=== PATIENT | female | born 1980 | race Caucasian/White ===

== ENCOUNTER 2024-01-04 11:32 | Day surgery (SDC) | payer OTHER ==
[~2024-01-04] VITALS: Ht 175.3 cm; Wt 76.7 kg
[~2024-01-04 11:32] MED LIST: Lactated Ringer's 1,000 ML IV ONE; propofoL 50 ML IV ONE
[2024-01-04] MEDS ORDERED: LORA10ER (11:56)
[2024-01-04] MEDS ORDERED: TERB250 (11:56)
[2024-01-04] MEDS ORDERED: ALEVAZOL56.7 G1 (11:57)
[2024-01-04] MEDS ORDERED: MULTI-VITAMIN1 EAC2 (11:57)
[2024-01-04] MEDS ORDERED: Acerola C500 MG (11:58)
[2024-01-04] MEDS ORDERED: CALCIUM CITRAT250 MG (11:58)
[2024-01-04] MEDS ORDERED: K2-D3 MAX 180-1 EACH (11:58)
[2024-01-04] MEDS ORDERED: FISH OIL 1,0001 EA10 (11:58)
[2024-01-04] MEDS ORDERED: VITAMIN D310 MC5 (11:59)
[2024-01-04] MEDS ORDERED: ZINC15 (11:59)
[2024-01-04] MEDS ORDERED: PROG100 (12:01)
[2024-01-04] MEDS ORDERED: DELESTROGEN (12:01)
[2024-01-04] MEDS ORDERED: Lactated Ringer's 1,000 ML IV ONE (12:23)
--- NOTE | 2024-01-04 12:27 | NUR ---
01/04/24 1227 Lynn Lott DENIES ANY PAIN.
[2024-01-04 14:09] VITALS: BP 109/71
== END 2024-01-04 13:50 | disposition home or self-care (01) ==
LOC: ORSCSDS 11:32
PROVIDERS: Internal Medicine Gastroenterology
PROC: 0DBK8ZX Excision of Ascending Colon, Via Natural or Artificial Opening Endoscopic, Diagnostic (ICD-10-PCS; principal; 2024-01-04 12:45)
DX: K62.5 Hemorrhage of anus and rectum (principal); R19.4 Change in bowel habit; D12.2 Benign neoplasm of ascending colon; K64.8 Other hemorrhoids
CPT/HCPCS: 88305; J2704; J7120

== ENCOUNTER 2024-06-29 12:48 | Emergency (ER) | payer OTHER ==
[~2024-06-29] VITALS: Ht 175.3 cm; Wt 77.1 kg
[~2024-06-29 12:48] MED LIST changes: +ALEVAZOL56.7 G1; +Acerola C500 MG; +CALCIUM CITRAT250 MG; +DELESTROGEN; +FISH OIL 1,0001 EA10; +K2-D3 MAX 180-1 EACH; +LORA10ER; -Lactated Ringer's 1,000 ML IV ONE; +MULTI-VITAMIN1 EAC2; +PROG100; +TERB250; +VITAMIN D310 MC5; +ZINC15; -propofoL 50 ML IV ONE
[2024-06-29 13:20] VITALS: BP 116/80
[2024-06-29] MEDS ORDERED: Ketorolac Tromethamine 15mg Vial IM ONE (15:10)
== END 2024-06-29 16:17 | disposition home or self-care (01) ==
LOC: ER 12:48
DX: M79.672 Pain in left foot (principal); Z59.89 Other problems related to housing and economic circumstances; Z79.899 Other long term (current) drug therapy; Z79.890 Hormone replacement therapy; Z79.51 Long term (current) use of inhaled steroids; Z79.52 Long term (current) use of systemic steroids; Z79.83 Long term (current) use of bisphosphonates; Z79.02 Long term (current) use of antithrombotics/antiplatelets; W18.30XA Fall on same level, unspecified, initial encounter
CPT/HCPCS: 73630; 96372; 99283-25; J1885

== ENCOUNTER → 2024-10-13 | Outpatient (CLI) | payer OTHER ==
[2024-10-17 15:54] LABS: HEPATITIS C AB CIA INTERP Negative (Negative); HEPATITIS C ANTIBODY CIA INDEX 0.03 IV
[2024-10-17 16:05] LABS: HIV 1,2 COMBO ANTIGEN/ANTIBODY Negative (Negative)
== END ==
LOC: LAB SHORT 17:21 → LAB 17:21
DX: Z11.59 Encounter for screening for other viral diseases (principal)
CPT/HCPCS: 86592; 86803; 87389

== ENCOUNTER → 2024-10-31 | Outpatient (CLI) | payer OTHER ==
[2024-10-31 14:26] LABS: Chlamydia Trachomatis Rectal NOT DETECTED (NOT DETECT); Neisseria Gonorrhoea Rectal NOT DETECTED (NOT DETECT)
== END | disposition home or self-care (01) ==
LOC: LAB 11:28 → LAB SHORT 11:28
DX: Z11.59 Encounter for screening for other viral diseases (principal)
CPT/HCPCS: 87491; 87591